=== PATIENT | female | born 1960 | race Caucasian/White ===

== ENCOUNTER 2019-02-20 00:28 | Emergency (ER) | payer OTHER ==
[2019-02-20 00:41] VITALS: BP 153/99; PULSE 78; TEMP 98.7; BMI 24.9
--- NOTE | 2019-02-20 00:50 | PDOC ---
History of Present Illness - General Chief Complaint: Injury Stated Complaint: RT RIB PAIN Time Seen by Provider: 02/20/19 00:44 History Source: Patient Exam Limitations: No Limitations - History of Present Illness Initial Comments: 02/20/19 00:50 This is a 59-year-old female who comes in complaining that she was standing on the arm of the couch trying to ingest drapes with the couch arm. She fell landing on her ribs and hurting her foot. Patient said she injured herself 2 hours. Patient denies hitting her head, passing out, headache or any other injuries. Patient denies shortness of breath because it does hurt when she takes a deep breath. Allergies: as per nursing notes Past Medical History: none Social history: Lives with family. No smoking. No alcohol. No illicit drugs. Surgical history: None General: No fevers or chills, no weakness, no weight loss HEENT: No change in vision. No sore throat,. No ear pain CardioVascular: no chest discomfort. No shortness of breath Respiratory:No cough, or wheezing. Gastrointestinal: no nausea, vomiting, diarrhea or constipation, No rectal bleeding Genitourinary: No dysuria, hematuria, or frequency Musculoskeletal: No joint or muscle pain or swelling Neurologic: No headache, vertigo, dizziness or loss of consciousness Psychiatric: nor depression Skin: No rashes or easy bruising Endocrine: no increased thirst or abnormal weight change Allergic: no skin or latex allergy All other systems reviewed and normal GENERAL: The patient is awake, alert, and fully oriented, in no acute distress. HEAD: Normal with no signs of trauma. CHEST: Right lower ribs are tender on palpation laterally. Lungs are clear EYES: Pupils equal, round and reactive to light, extraocular movements intact, sclera anicteric, conjunctiva clear. EXTREMITIES:atraumatic, Normal range of motion, no edema. There is an abrasion to the top of the right foot with some ecchymosis and tenderness neurovascular is intact NEUROLOGICAL: Normal speech, normal gait. PSYCH: Normal mood, normal affect. SKIN: Warm, Dry, normal turgor, no rashes or lesions noted Assessment and plan: This is a 59-year-old female who fell injuring her ribs and right foot. We will obtain right rib x-rays and right foot x-rays. 02/20/19 01:25 X-ray interpreted by me of ribs show a minimally displaced fracture of the ninth rib laterally Foot x-ray is negative for any acute fracture or dislocation 02/20/19 01:36 Patient discharged home prescription sent to her pharmacy for some Percocet. 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 - Surgical History Appendectomy: Yes - Suicide/Smoking/Psychosocial Hx Smoking History: Never smoked *Physical Exam - Vital Signs Last Vital Signs Temp Pulse Resp BP Pulse Ox 98.7 F 78 18 153/99 100 02/20/19 00:29 02/20/19 00:29 02/20/19 00:29 02/20/19 00:29 02/20/19 00:29 *DC/Admit/Observation/Transfer Diagnosis at time of Disposition: Right rib fracture, Contusion of right foot - Discharge Dispostion Disposition: HOME Condition at time of disposition: Stable - Prescriptions Prescriptions: Oxycodone HCl/Acetaminophen [Percocet 5-325 mg Tablet] 1 tab PO Q6H #20 tablet MDD 6 - Referrals Referrals: ON STAFF,NOT [Primary Care Provider] - - Patient Instructions Additional Instructions: Your x-ray showed that you have a fracture of one rib on the right side where the pain is. There is no fracture of your foot. For the pain take ibuprofen 3 tablets 3 times a day with food don't take on an empty stomach. If you need something stronger for the pain I sent a prescription to your pharmacy for some Percocet. However you need to be aware that the Percocet is habit forming as well as a narcotic that will make you drowsy. So limited to Percocet to the nighttime hours if at all possible. In addition to make you drowsy the Percocet will also make you very constipated. 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 If you go for more than 2 days without a bowel movement see your doctor for a stronger laxative. Return to the emergency department immediately with ANY new, persistent or worsening symptoms. Continue any medications as previously prescribed by your physician. You should follow up with your primary doctor as soon as possible regarding today's emergency department visit. . Please make sure your doctor reviews the results of your emergency evaluation. Thank you for coming to the Emergency Department today for your care. It was a pleasure to see you today. Please note that your evaluation is INCOMPLETE until you follow-up with your doctor. - Post Discharge Activity
[2019-02-20] MEDS ORDERED: KETOROLAC TROMETHAMINE 60 MG/2 ML VIAL IM ONE (00:53)
[2019-02-20] MEDS ORDERED: DIPHTH,PERTUSS(ACELL),TET 0.5 ML DISP.SYRIN IM ONE ×2 (00:56→00:57)
[2019-02-20] MEDS ORDERED: KETOROLAC TROMETHAMINE 60 MG/2 ML VIAL ONE (00:56)
== END 2019-02-20 01:43 | disposition home or self-care (01) ==
LOC: FER 00:28
PROC: 3E0234Z Introduction of Serum, Toxoid and Vaccine into Muscle, Percutaneous Approach (ICD-10-PCS; principal; 2019-02-20)
PROC: 3E0233Z Introduction of Anti-inflammatory into Muscle, Percutaneous Approach (ICD-10-PCS; 2019-02-20)
DX: S22.31XA Fracture of one rib, right side, initial encounter for closed fracture (principal); W18.39XA Other fall on same level, initial encounter; Y93.89 Activity, other specified; Y92.89 Other specified places as the place of occurrence of the external cause; S90.31XA Contusion of right foot, initial encounter
CPT/HCPCS: 71101-TC-RT-FY; 73630-TC-RT-FY; 90471; 90715; 96372; 99281-25

== ENCOUNTER 2019-08-01 23:36 | Emergency (ER) | payer OTHER ==
[2019-08-01 23:41] VITALS: BP 126/78; PULSE 81; TEMP 97.9; BMI 22.3
--- NOTE | 2019-08-01 23:41 | PDOC ---
History of Present Illness - General Chief Complaint: Injury Stated Complaint: RT ARM PAIN Time Seen by Provider: 08/01/19 23:41 History Source: Patient, Family - History of Present Illness Initial Comments: 08/02/19 00:00 Pt presents to the ED complaining of R arm pain that began after she got her R elbow caught in a door today. Denies other injuries. Patient has a full ROM of her elbow, but is concerned because she has recently had broken ribs. Wants an xray to rule out fracture. Past History - Past Medical History Allergies/Adverse Reactions: Allergies Allergy/AdvReac Type Severity Reaction Status Date / Time No Known Allergies Allergy Unverified 02/20/19 00:30 Home Medications: Ambulatory Orders NK [No Known Home Medication] 08/01/19 COPD: No - Surgical History Appendectomy: Yes - Psycho Social/Smoking Cessation Hx Smoking History: Never smoked Review of Systems - Review of Systems Musculoskeletal: Yes: Joint Pain All Other Systems: Reviewed and Negative *Physical Exam - Vital Signs Last Vital Signs Temp Pulse Resp BP Pulse Ox 97.9 F 81 16 126/78 100 08/01/19 23:37 08/01/19 23:37 08/01/19 23:37 08/01/19 23:37 08/01/19 23:37 - Physical Exam Comments: 08/02/19 00:13 Gen: Alert, NAD Ext: R elbow: + large ecchymoses medial and laterally. No bony tenderness or deformity. No Medical Decision Making - Medical Decision Making 08/02/19 00:35 Pt presents to the ED complaining of R elbow pain after crushing her elbow in the door. No bony deformity on exam. XRays of the elbow checked to rule out fx and are negative by my read. Will discharge home. Discharge - Discharge Information Problems reviewed: Yes Clinical Impression/Diagnosis: Contusion, elbow Qualifiers: Encounter type: initial encounter Laterality: right Qualified Code(s): S50.01XA - Contusion of right elbow, initial encounter Condition: Good Disposition: HOME - Admission No - Follow up/Referral Referrals: Riddhi Ayon MD [Primary Care Provider] - - Patient Discharge Instructions Patient Printed Discharge Instructions: DI for Elbow Sprain Additional Instructions: you came to the ED because you have injured your elbow. We did xrays, which do not show a fracture. You have a bad bruise on your elbow, and should use ice to help reduce the swelling. you can take motrin or tylenol for the pain. Return to the ED for severe pain and swelling, other new or changing symptoms. - Post Discharge Activity
== END 2019-08-02 00:43 | disposition home or self-care (01) ==
LOC: FER 23:36
DX: S50.01XA Contusion of right elbow, initial encounter (principal); W23.0XXA Caught, crushed, jammed, or pinched between moving objects, initial encounter; Y93.89 Activity, other specified; Y92.89 Other specified places as the place of occurrence of the external cause; K92.9 Disease of digestive system, unspecified
CPT/HCPCS: 73070-TC-RT-FY; 99281-25

== ENCOUNTER 2022-09-24 22:49 | Observation (INO) | payer OTHER ==
[2022-09-24 23:25] VITALS: BMI 22.6
[2022-09-25] MEDS ORDERED: MAG HYDROX/AL HYDROX/SIMETH 30 ML UNIT-DOSE CUP PO ONE (02:04)
[2022-09-25] MEDS ORDERED: FAMOTIDINE 20 MG/50 ML IVPB 20 MG/50 ML MG IVPB ONE ×2 (02:04→02:23)
[2022-09-25] MEDS ORDERED: ACETAMINOPHEN 1000 MG/100 ML BAG IVPB ONE (02:04)
[2022-09-25] MEDS ORDERED: ACETAMINOPHEN INJECTION 100 ML IVPB ONE (02:23)
[2022-09-25] MEDS ORDERED: ONDANSETRON 4 MG/2 ML VIAL ONE (02:29)
[2022-09-25 03:33] LABS: INR 1.03 (0.83-1.09); PROTHROMBIN TIME (PATIENT) 11.8 SEC (9.7-13.0)
[2022-09-25 03:36] LABS: ACTIVATED PTT 27.6 SECONDS (25.2-36.5)
[2022-09-25 03:44] LABS: CALCIUM 9.3 mg/dL (8.5-10.1)
[2022-09-25 03:45] LABS: ALBUMIN 4.1 g/dl (3.4-5.0); BLOOD UREA NITROGEN 13.8 mg/dL (7-18); MAGNESIUM 1.8 mg/dL (1.8-2.4)
[2022-09-25 03:48] LABS: CREATININE 0.6 mg/dL (0.55-1.3)
[2022-09-25 03:49] LABS: BILIRUBIN,TOTAL 0.6 mg/dL (0.2-1); TOT PROT 7.1 g/dl (6.4-8.2)
[2022-09-25 04:32] LABS: BASO % 0.5 % (0-2.0); EOS % 0.6 % (0-4.5); HEMATOCRIT 34.7 % (32.4-45.2); HEMOGLOBIN 11.5 GM/dL (10.7-15.3); LYMPH % 44.2 % (8-40); MCH 27.4 pg (25.7-33.7); MCHC 33.1 g/dl (32.0-36.0); MEAN CELL VOLUME 82.5 fl (80-96); MEAN PLT VOLUME 11.1 fl (7.5-11.1); MONO % 12.2 % (3.8-10.2); NEUT % 42.5 % (42.8-82.8); PLATELET COUNT 208 10^3/uL (134-434); RDW 13.7 % (11.6-15.6)
[2022-09-25 04:39] LABS: URINE APPEARANCE CLEAR; URINE BILIRUBIN NEGATIVE (NEGATIVE); URINE COLOR YELLOW; URINE GLUCOSE (UA) NEGATIVE (NEGATIVE); URINE KETONE 1+ (NEGATIVE); URINE LEUK ESTERASE NEGATIVE (NEGATIVE); URINE NITRITE NEGATIVE (NEGATIVE); URINE PROTEIN NEGATIVE (NEGATIVE); URINE UROBILINOGEN 0.2 mg/dL (0.2-1.0)
[2022-09-25 04:41] LABS: WHITE BLOOD COUNT 3.2 K/mm3 (4.0-10.0)
[2022-09-25] MEDS ORDERED: DEXTROSE 50%-WATER - 25 GM/50 ML VIAL IVPUSH ONE (05:21)
[2022-09-25] MEDS ORDERED: DEXTROSE 50%-WATER 25 GM/50 ML DISP.SYRIN ONE (05:22)
[2022-09-25] MEDS ORDERED: SODIUM PHOSPHATE/NA BIPHOS 133 ML ENEMA PR ONE (05:53)
[2022-09-25] MEDS ORDERED: ASPIRIN 325 MG TABLET PO ONE (07:40)
[2022-09-25] MEDS ORDERED: ASPIRIN 325 MG ENTERIC COATED TABLET (FP) ONE (07:49)
[2022-09-25 09:16] LABS: N-TERMINAL BNP 121.7 pg/ml (5-125)
[2022-09-25] MEDS: INSULIN SLIDING SCALE (NOVOLOG) 1 VIAL SQ SCH ×3 (10:11→22:41)
[2022-09-25] MEDS ORDERED: CYCLOBENZAPRINE HCL 10 MG TABLET (FP) PO PRN (11:07)
[2022-09-25] MEDS ORDERED: POLYETHYLENE GLYCOL (HEALTHYLAX) 3350 17 GM PACKET ONE (11:12)
[2022-09-25] MEDS ORDERED: GABAPENTIN 100 MG CAPSULE ONE (11:12)
[2022-09-25] MEDS ORDERED: CLOPIDOGREL BISULFATE 75 MG TABLET (FP) ONE (11:12)
[2022-09-25] MEDS ORDERED: ENOXAPARIN NA (PORCINE) 40 MG/0.4 ML DISP.SYRIN SQ ONE (11:12)
[2022-09-25] MEDS ORDERED: DOCUSATE SODIUM 100 MG CAPSULE (FP) PO ONE (11:12)
[2022-09-25] MEDS ORDERED: CARVEDILOL 12.5 MG TABLET (FP) ONE (11:12)
[2022-09-25] MEDS: DOCUSATE SODIUM 100 MG CAPSULE (FP) PO SCH ×2 (11:22→22:40)
[2022-09-25] MEDS: ENOXAPARIN NA (PORCINE) 40 MG/0.4 ML DISP.SYRIN SQ SCH (11:22)
[2022-09-25] MEDS: CARVEDILOL 12.5 MG TABLET (FP) PO SCH ×2 (11:22→22:40)
[2022-09-25] MEDS: CLOPIDOGREL BISULFATE 75 MG TABLET (FP) PO SCH (11:22)
[2022-09-25] MEDS: GABAPENTIN 100 MG CAPSULE PO SCH (11:22)
[2022-09-25] MEDS: POLYETHYLENE GLYCOL (HEALTHYLAX) 3350 17 GM PACKET PO SCH ×2 (11:22→22:40)
[2022-09-25] MEDS ORDERED: CYCLOBENZAPRINE HCL 10 MG TABLET (FP) PO SCH (14:00)
[2022-09-25 20:29] VITALS: RESP 18
[2022-09-25] MEDS ORDERED: AMITRIPTYLINE HCL 50 MG TABLET PO SCH (22:00)
[2022-09-25] MEDS ORDERED: TOPIRAMATE 25 MG PO SCH (22:00)
[2022-09-25] MEDS: AMITRIPTYLINE HCL 25 MG TABLET PO SCH (22:40)
[2022-09-25] MEDS: ATORVASTATIN CA 20 MG TABLET (FP) PO SCH (22:40)
[2022-09-26] MEDS: INSULIN SLIDING SCALE (NOVOLOG) 1 VIAL SQ SCH ×4 (06:10→21:44)
[2022-09-26 10:03] LABS: BASO % 0.6 % (0-2.0); EOS % 1.7 % (0-4.5); HEMATOCRIT 35.4 % (32.4-45.2); HEMOGLOBIN 11.7 GM/dL (10.7-15.3); LYMPH % 39.7 % (8-40); MCH 27.2 pg (25.7-33.7); MCHC 32.9 g/dl (32.0-36.0); MEAN CELL VOLUME 82.7 fl (80-96); MEAN PLT VOLUME 9.9 fl (7.5-11.1); MONO % 11.1 % (3.8-10.2); NEUT % 46.9 % (42.8-82.8); PLATELET COUNT 195 10^3/uL (134-434); RBC 4.28 M/mm3 (3.60-5.2); WHITE BLOOD COUNT 2.6 K/mm3 (4.0-10.0)
[2022-09-26 10:36] LABS: CALCIUM 8.8 mg/dL (8.5-10.1)
[2022-09-26 10:37] LABS: BLOOD UREA NITROGEN 7.8 mg/dL (7-18); MAGNESIUM 2.1 mg/dL (1.8-2.4)
[2022-09-26] MEDS: CARVEDILOL 12.5 MG TABLET (FP) PO SCH ×2 (10:38→21:44)
[2022-09-26] MEDS: GABAPENTIN 100 MG CAPSULE PO SCH (10:38)
[2022-09-26] MEDS: ENOXAPARIN NA (PORCINE) 40 MG/0.4 ML DISP.SYRIN SQ SCH (10:38)
[2022-09-26] MEDS: POLYETHYLENE GLYCOL (HEALTHYLAX) 3350 17 GM PACKET PO SCH ×2 (10:38→21:44)
[2022-09-26] MEDS: DOCUSATE SODIUM 100 MG CAPSULE (FP) PO SCH ×2 (10:38→21:43)
[2022-09-26] MEDS: CLOPIDOGREL BISULFATE 75 MG TABLET (FP) PO SCH (10:38)
[2022-09-26 10:40] LABS: CREATININE 0.6 mg/dL (0.55-1.3); PHOSPHOROUS 3.3 mg/dL (2.5-4.9)
[2022-09-26] MEDS ORDERED: MINERAL OIL ENEMA 133 ML ENEMA RC ONE (14:28)
[2022-09-26] MEDS: AMITRIPTYLINE HCL 25 MG TABLET PO SCH (21:44)
[2022-09-26] MEDS: ATORVASTATIN CA 20 MG TABLET (FP) PO SCH (21:44)
[2022-09-27] MEDS: INSULIN SLIDING SCALE (NOVOLOG) 1 VIAL SQ SCH ×3 (06:05→16:38)
[2022-09-27] MEDS: DOCUSATE SODIUM 100 MG CAPSULE (FP) PO SCH (09:41)
[2022-09-27] MEDS: CARVEDILOL 12.5 MG TABLET (FP) PO SCH (09:42)
[2022-09-27] MEDS: CLOPIDOGREL BISULFATE 75 MG TABLET (FP) PO SCH (09:42)
[2022-09-27] MEDS: ENOXAPARIN NA (PORCINE) 40 MG/0.4 ML DISP.SYRIN SQ SCH (09:42)
[2022-09-27] MEDS: POLYETHYLENE GLYCOL (HEALTHYLAX) 3350 17 GM PACKET PO SCH (09:42)
[2022-09-27] MEDS: GABAPENTIN 100 MG CAPSULE PO SCH (09:42)
[2022-09-27] MEDS ORDERED: SODIUM PHOSPHATE/NA BIPHOS 133 ML ENEMA RC STA (09:47)
[2022-09-27] MEDS ORDERED: POLYETHYLENE GLYCOL 3350 255 GM BTL PO ONE (12:00)
[2022-09-27 13:21] VITALS: BP 112/59; PULSE 58; TEMP 98.4
== END 2022-09-27 18:49 | disposition home or self-care (01) ==
LOC: JER 22:49 → JERBED 09-25 08:11 → J6W 09-25 13:36
PROVIDERS: ADMIT Internal Medicine; ATTEND Internal Medicine
PROC: 3E033NZ Introduction of Analgesics, Hypnotics, Sedatives into Peripheral Vein, Percutaneous Approach (ICD-10-PCS; principal; 2022-09-25)
PROC: 3E0337Z Introduction of Electrolytic and Water Balance Substance into Peripheral Vein, Percutaneous Approach (ICD-10-PCS; 2022-09-25)
PROC: 3E023GC Introduction of Other Therapeutic Substance into Muscle, Percutaneous Approach (ICD-10-PCS; 2022-09-25)
PROC: 3E033GC Introduction of Other Therapeutic Substance into Peripheral Vein, Percutaneous Approach (ICD-10-PCS; 2022-09-25)
DX: I11.0 Hypertensive heart disease with heart failure (principal); K21.9 Gastro-esophageal reflux disease without esophagitis; E11.9 Type 2 diabetes mellitus without complications; E78.5 Hyperlipidemia, unspecified; K76.0 Fatty (change of) liver, not elsewhere classified; K59.00 Constipation, unspecified; D64.9 Anemia, unspecified
CPT/HCPCS: 0241U-QW; 36415; 71046-TC-FY; 74177-TC; 80048; 80053; 80061; 81003; 82550; 82553; 82962; 83036; 83605; 83690; 83735; 83880; 84100; 84443; 84484; 85025; 85610; 85730; 87086; 93005; 93010; 94010; 96361; 96365; 96372; 96375; 99285-25; G0378; Q9967